=== PATIENT | female | born 1975 | race Hispanic/Latino ===

== ENCOUNTER 2018-09-28 17:27 | Emergency (ER) | payer OTHER, MEDICARE ==
[~2018-09-28 17:27] MED LIST: CLON0.5T12 PO; CLON1TAB12 PO; FLUO-125 PO; HYDR-4060 PO; METH2.5T6 PO; MULT-264 PO; MULTIVITAMIN PO; VITA1CAP85 PO
== END 2018-09-28 17:48 | disposition home or self-care (01) ==
LOC: EDH 17:27
DX: F43.20 Adjustment disorder, unspecified (principal); F41.9 Anxiety disorder, unspecified; F32.9 Major depressive disorder, single episode, unspecified; E11.9 Type 2 diabetes mellitus without complications; Z90.710 Acquired absence of both cervix and uterus; Z98.890 Other specified postprocedural states

== ENCOUNTER 2018-10-06 10:48 | Emergency (ER) | payer OTHER, MEDICARE ==
[2018-10-06] MEDS ORDERED: HYDROXYZINE HCL 50 MG/ML VIAL IM SCH (11:30)
[2018-10-06 11:48] LABS: HCG,QUAL RESULT NEGATIVE (NEGATIVE)
[2018-10-06 11:55] LABS: AMPHET/METH SCREEN,URINE NEGATIVE (NEGATIVE); BARBITURATE SCREEN, URINE NEGATIVE (NEGATIVE); BENZODIAZEPINES SCREEN,URINE NEGATIVE (NEGATIVE); CANNABINOID SCREEN,URINE NEGATIVE (NEGATIVE); COCAINE SCREEN,URINE NEGATIVE (NEGATIVE); OPIATE SCREEN,URINE NEGATIVE (NEGATIVE); PHENCYCLIDINE SCREEN,URINE NEGATIVE (NEGATIVE)
== END 2018-10-06 13:48 | disposition home or self-care (01) ==
LOC: EDH 10:48
DX: F41.1 Generalized anxiety disorder (principal); F32.9 Major depressive disorder, single episode, unspecified; E11.9 Type 2 diabetes mellitus without complications; Z90.710 Acquired absence of both cervix and uterus
CPT/HCPCS: 71045; 80305; 81025; 87804 ×2; 93005; 96372; 99284; J3410

== ENCOUNTER 2018-10-08 10:11 | Emergency (ER) | payer OTHER, MEDICARE ==
[2018-10-08] MEDS ORDERED: SODIUM CHLORIDE 0.9% 1000ML 1,000 ML IV ONE (11:27)
[2018-10-08 12:05] LABS: BASOPHILS % (AUTO) 0.2 % (0.0-5.0); EOSINOPHILS % (AUTO) 0.7 % (0.0-8.0); HEMATOCRIT 37.7 % (36-48); LYMPHOCYTES % (AUTO) 15.7 % (21.0-51.0); MEAN CORPUSCULAR HEMOGLOBIN 26.4 pg (27.0-33.0); MEAN CORPUSCULAR HGB CONC 32.4 g/dL (32.0-36.0); MEAN CORPUSCULAR VOLUME 81.5 fL (79-99); MONOCYTES % (AUTO) 5.8 % (3.0-13.0); NEUTROPHILS % (AUTO) 77.6 % (40.0-77.0); NUCLEATED RED BLOOD CELLS 0.1 % (0.0-0.19); PLATELET COUNT (AUTO) 281 K/uL (130-400); RED BLOOD CELL COUNT(AUTO) 4.62 MIL/uL (4.00-5.50); RED CELL DISTRIBUTION WIDTH 16.7 % (11.0-15.5)
[2018-10-08 12:13] LABS: CREATININE 1.1 mg/dL (0.5-1.5); POTASSIUM 3.9 mmol/L (3.5-5.1)
[2018-10-08 12:25] LABS: ALBUMIN 2.9 g/dL (3.5-5.0); BILIRUBIN,TOTAL 0.4 mg/dL (0.2-1.0); THYROID STIMULATING HORMONE 1.29 uIU/mL (0.36-3.74); TOTAL PROTEIN, SERUM 7.4 g/dL (6.0-8.3)
[2018-10-08 12:37] LABS: APPEARANCE,URINE Clear (CLEAR); BILIRUBIN,URINE Negative (NEGATIVE); COLOR,URINE Yellow (YELLOW); GLUCOSE, URINE (UA) Negative (NEGATIVE); KETONES,URINE Negative (NEGATIVE); LEUKOCYTE ESTERASE ,URINE Small (NEGATIVE); NITRATE,URINE Negative (NEGATIVE); OCCULT BLOOD,URINE Negative (NEGATIVE); PROTEIN,URINE Negative (NEGATIVE)
[2018-10-08 12:39] LABS: HCG,QUAL RESULT NEGATIVE (NEGATIVE)
[2018-10-08 12:44] LABS: AMPHET/METH SCREEN,URINE NEGATIVE (NEGATIVE); BARBITURATE SCREEN, URINE NEGATIVE (NEGATIVE); BENZODIAZEPINES SCREEN,URINE POSITIVE (NEGATIVE); CANNABINOID SCREEN,URINE NEGATIVE (NEGATIVE); COCAINE SCREEN,URINE NEGATIVE (NEGATIVE); OPIATE SCREEN,URINE NEGATIVE (NEGATIVE); PHENCYCLIDINE SCREEN,URINE NEGATIVE (NEGATIVE)
[2018-10-08 12:52] LABS: BACTERIA,URINE Rare /HPF (None Seen); RBC,URINE None Seen /HPF (0-1); SQUAMOUS EPITHELIAL CELL,UR Few /HPF (0-2); WBC,URINE 0-1 /HPF (0-1)
== END 2018-10-08 13:37 | disposition home or self-care (01) ==
LOC: EDH 10:11
DX: R00.2 Palpitations (principal); F41.9 Anxiety disorder, unspecified; F32.9 Major depressive disorder, single episode, unspecified; M19.90 Unspecified osteoarthritis, unspecified site; E11.9 Type 2 diabetes mellitus without complications; Z90.710 Acquired absence of both cervix and uterus; Z98.890 Other specified postprocedural states
CPT/HCPCS: 36415; 71046; 80053; 80305; 81001; 81025; 84443; 85025; 93005; 99284; J7030

== ENCOUNTER 2019-03-19 20:19 | Emergency (ER) | payer OTHER, MEDICARE ==
[2019-03-19] MEDS ORDERED: DEXAMETHASONE SOD PHOSPHATE 10MG/ML 1ML VIAL ONE (20:53)
[2019-03-19] MEDS ORDERED: DiphenhydrAMINE HCL 50 MG/ML VIAL ONE (20:53)
== END 2019-03-19 21:21 | disposition home or self-care (01) ==
LOC: EDH 20:19
DX: T78.40XA Allergy, unspecified, initial encounter (principal); E11.9 Type 2 diabetes mellitus without complications; F32.9 Major depressive disorder, single episode, unspecified; M19.90 Unspecified osteoarthritis, unspecified site; F41.9 Anxiety disorder, unspecified; Z90.710 Acquired absence of both cervix and uterus; Z90.89 Acquired absence of other organs; Z98.890 Other specified postprocedural states; Z72.0 Tobacco use; X58.XXXA Exposure to other specified factors, initial encounter
CPT/HCPCS: 96372 ×2; 99284; J1100; J1200

== ENCOUNTER 2019-03-25 20:54 | Emergency (ER) | payer OTHER, MEDICARE | END 2019-03-25 21:27 | disposition home or self-care (01) | LOC: EDH 20:54 | DX: F41.1 Generalized anxiety disorder (principal); F32.9 Major depressive disorder, single episode, unspecified; E11.9 Type 2 diabetes mellitus without complications ==

== ENCOUNTER 2019-07-17 22:29 | Emergency (ER) | payer OTHER, MEDICARE ==
[2019-07-17] MEDS ORDERED: DIAZEPAM 2 MG TAB ONE (23:21)
[2019-07-17] MEDS ORDERED: METHYLPREDNISOLONE SOD SUCC 125MG/2ML VIAL ONE (23:21)
[2019-07-18] MEDS ORDERED: LORAZEPAM 2 MG/ML 1 ML VIAL ONE (00:15)
== END 2019-07-18 00:48 | disposition home or self-care (01) ==
LOC: EDH 22:29
DX: S76.011A Strain of muscle, fascia and tendon of right hip, initial encounter (principal); F41.9 Anxiety disorder, unspecified; E11.9 Type 2 diabetes mellitus without complications; M19.90 Unspecified osteoarthritis, unspecified site; Z90.710 Acquired absence of both cervix and uterus; Z98.890 Other specified postprocedural states; Z72.0 Tobacco use; W18.39XA Other fall on same level, initial encounter; Y93.89 Activity, other specified; Y92.89 Other specified places as the place of occurrence of the external cause; Y99.8 Other external cause status
CPT/HCPCS: 73502; 96372 ×2; 99284; J2060; J2930

== ENCOUNTER 2022-03-30 11:44 | Emergency (ER) | payer MEDICARE ==
[~2022-03-30] VITALS: Ht 165.1 cm; Wt 108.0 kg
[~2022-03-30 11:44] MED LIST changes: -CLON0.5T12 PO; +CLON0.5T4 PO; -FLUO-125 PO; +FLUO10CA24 PO
[2022-03-30 11:46] VITALS: BP 135/77
[2022-03-30] MEDS ORDERED: GABA300C PO (12:10)
[2022-03-30] MEDS ORDERED: CYCLOBENZAPRINE HCL 10 MG TABLET PO ONE (12:30)
== END 2022-03-30 12:48 | disposition home or self-care (01) ==
LOC: EDH 11:44
DX: M25.551 Pain in right hip (principal); M06.9 Rheumatoid arthritis, unspecified; E11.9 Type 2 diabetes mellitus without complications; I10 Essential (primary) hypertension; E66.9 Obesity, unspecified; Z79.899 Other long term (current) drug therapy; Z68.39 Body mass index [BMI] 39.0-39.9, adult

== ENCOUNTER 2023-04-11 17:48 | Emergency (ER) | payer MEDICARE ==
[~2023-04-11] VITALS: Ht 165.1 cm; Wt 96.2 kg
[~2023-04-11 17:48] MED LIST changes: +GABA300C PO
[2023-04-11 19:44] VITALS: BP 139/88
[2023-04-11] MEDS ORDERED: FAMOTIDINE 20MG TAB PO ONE (22:00)
[2023-04-11] MEDS ORDERED: FAMOTIDINE 20MG VIAL IV ONE (22:00)
[2023-04-11] MEDS ORDERED: KETOROLAC 30MG VIAL (30MG/ML) IVP ONE (22:00)
[2023-04-11] MEDS ORDERED: METOCLOPRAMIDE 10 MG/2 ML VIAL IVP ONE (22:00)
[2023-04-11] MEDS ORDERED: LACTATED RINGERS 1000ML 1,000 ML IV ONE (22:00)
[2023-04-11] MEDS ORDERED: DIAZEPAM 5 MG/ML 2 ML SYG IVP ONE (22:00)
[2023-04-11 22:14] LABS: APPEARANCE,URINE CLEAR (CLEAR); BILIRUBIN,URINE NEGATIVE (NEGATIVE); COLOR,URINE LIGHT-YELLOW (YELLOW); GLUCOSE, URINE (UA) >=1000 mg/dL (NEGATIVE); KETONES,URINE 5 mg/dL (NEGATIVE); LEUKOCYTE ESTERASE ,URINE 250 Leu/uL (NEGATIVE); NITRATE,URINE NEGATIVE (NEGATIVE); OCCULT BLOOD,URINE NEGATIVE (NEGATIVE); PROTEIN,URINE 10 mg/dL (NEGATIVE); UROBILINOGEN,URINE 0.2 mg/dL (0.2-1.0)
[2023-04-11 22:16] LABS: BASOPHILS % (AUTO) 0.4 % (0.0-5.0); EOSINOPHILS % (AUTO) 1.2 % (0.0-8.0); HEMATOCRIT 35.8 % (36-48); LYMPHOCYTES % (AUTO) 33.4 % (21.0-51.0); MEAN CORPUSCULAR HEMOGLOBIN 26.2 pg (27.0-33.0); MEAN CORPUSCULAR HGB CONC 32.4 g/dL (32.0-36.0); MEAN CORPUSCULAR VOLUME 80.8 fL (79-99); MONOCYTES % (AUTO) 4.4 % (3.0-13.0); NEUTROPHILS % (AUTO) 60.3 % (40.0-77.0); PLATELET COUNT (AUTO) 253 K/uL (130-400); RED BLOOD CELL COUNT(AUTO) 4.43 MIL/uL (4.00-5.50); RED CELL DISTRIBUTION WIDTH 15.3 % (11.0-15.5); WHITE BLOOD COUNT (AUTO) 7.8 K/uL (4.8-10.8)
[2023-04-11 22:22] LABS: BACTERIA,URINE RARE /HPF (None Seen); MUCUS,URINE RARE LPF (None Seen); SQUAMOUS EPITHELIAL CELL,UR FEW /HPF (0-2); YEAST,URINE BUDDING RARE /HPF (None Seen)
[2023-04-11 22:43] LABS: CARBON DIOXIDE 31 mmol/L (21-32); CHLORIDE 100 mmol/L (101-111); CREATININE 0.9 mg/dL (0.5-1.5); GLOMERULAR FILTR. RATE CALC 79 mL/min (>90); GLUCOSE,RANDOM 332 mg/dL (70-105); POTASSIUM 5.4 mmol/L (3.5-5.1); SODIUM SERUM 135 mmol/L (136-145); UREA NITROGEN, BLOOD 9 mg/dL (7-18)
[2023-04-11 22:54] LABS: ALANINE AMINOTRANSFERASE 20 U/L (12-78); ALBUMIN 2.6 g/dL (3.5-5.0); ASPARTATE AMINOTRANSFERASE 33 U/L (10-37); HCG,QUANTITATIVE 2 mIU/mL (0-5); TOTAL PROTEIN, SERUM 7.1 g/dL (6.0-8.3)
[2023-04-11 22:57] LABS: LIPASE < 50 U/L (114-286)
[2023-04-12] MEDS ORDERED: CEPH500B PO (00:21)
[2023-04-12] MEDS ORDERED: MELO-106 PO (00:21)
[2023-04-12] MEDS ORDERED: PHEN-776 PO (00:21)
[2023-04-12] MEDS ORDERED: CYCL10TA16 PO (00:21)
[2023-04-12] MEDS ORDERED: CEPHALEXIN 500 MG CAPSULE PO ONE (00:30)
[2023-04-12] MEDS ORDERED: INSULIN HUMULIN R 100 UNIT/ML 3ML IV ONE (00:30)
== END 2023-04-12 01:00 | disposition home or self-care (01) ==
LOC: EDH 17:48
DX: M54.41 Lumbago with sciatica, right side (principal); N39.0 Urinary tract infection, site not specified; E87.6 Hypokalemia; E11.65 Type 2 diabetes mellitus with hyperglycemia; F41.9 Anxiety disorder, unspecified; M19.90 Unspecified osteoarthritis, unspecified site; F32.A Depression, unspecified; I10 Essential (primary) hypertension; M79.7 Fibromyalgia; Z79.899 Other long term (current) drug therapy
CPT/HCPCS: 99285; 96374; 96375 ×2; 71045; 96361; 84484; 80053; 84702; 83690; 85025; 87088; 82948; 81001; 36415; 74021; 93005; J7120; J3490; J3360; J1885; J2765; J1815

== ENCOUNTER 2024-01-31 11:12 | Emergency (ER) | payer MEDICARE ==
[~2024-01-31] VITALS: Ht 165.1 cm; Wt 81.6 kg
[~2024-01-31 11:12] MED LIST changes: +CEPH500B PO; +CYCL10TA16 PO; +MELO-106 PO; +PHEN-776 PO
[2024-01-31] MEDS: CEFTRIAXONE 2GM VIAL IVPB ONE (11:44)
[2024-01-31] MEDS: 0.9%NACL 1000ML 1,000 ML IV ONE (11:44)
[2024-01-31] MEDS ORDERED: ALBENDAZOLE 200 MG TABLET PO ONE (12:00)
[2024-01-31 12:09] LABS: EOSINOPHILS % (AUTO) 0.8 % (0.0-8.0); HEMATOCRIT 38.9 % (36-48); LYMPHOCYTES % (AUTO) 20.4 % (21.0-51.0); MEAN CORPUSCULAR HEMOGLOBIN 25.9 pg (27.0-33.0); MEAN CORPUSCULAR HGB CONC 34.2 g/dL (32.0-36.0); MEAN CORPUSCULAR VOLUME 75.7 fL (79-99); NEUTROPHILS % (AUTO) 71.9 % (40.0-77.0); PLATELET COUNT (AUTO) 301 K/uL (130-400); RED BLOOD CELL COUNT(AUTO) 5.14 MIL/uL (4.00-5.50); RED CELL DISTRIBUTION WIDTH 14.3 % (11.0-15.5); WHITE BLOOD COUNT (AUTO) 8.5 K/uL (4.8-10.8)
[2024-01-31 12:10] LABS: BASOPHILS # (AUTO) 0.03 K/uL (0.00-0.20); BASOPHILS % (AUTO) 0.4 % (0.0-5.0); EOSINOPHILS # (AUTO) 0.07 K/uL (0.00-0.70); IMMATURE GRANULOCYTE ABSOLUTE 0.04 K/uL (0-1); LYMPHOCYTES # (AUTO) 1.7 K/uL (1.0-4.8); MONOCYTES # (AUTO) 0.5 K/uL (0.1-1.0); NEUTROPHILS # (AUTO) 6.1 K/uL (1.8-7.7)
[2024-01-31 12:18] LABS: CREATININE 0.8 mg/dL (0.5-1.0); POTASSIUM 4.3 mmol/L (3.5-5.1)
[2024-01-31 12:32] LABS: MAGNESIUM 1.7 mg/dL (1.80-2.40); THYROID STIMULATING HORMONE 1.51 uIU/mL (0.36-3.74)
[2024-01-31] MEDS: INSULIN HUMULIN R 100 UNIT/ML 3ML SQ ONE (12:35)
[2024-01-31] MEDS ORDERED: ALBE200T7 PO (12:45)
[2024-01-31] MEDS ORDERED: DOXY-469 PO (12:45)
[2024-01-31 12:57] LABS: HIV 1&2 ANTIBODY Non-Reactive (Negative); HIV-1 p24 Antigen Non-Reactive (Negative)
[2024-01-31 13:54] VITALS: BP 127/90; PULSE 91; RESP 18; O2SAT 98
[2024-01-31 14:34] LABS: APPEARANCE,URINE CLEAR (CLEAR); BILIRUBIN,URINE SMALL mg/dL (NEGATIVE); COLOR,URINE YELLOW (YELLOW); GLUCOSE, URINE (UA) NEGATIVE (NEGATIVE); KETONES,URINE 15 mg/dL (NEGATIVE); LEUKOCYTE ESTERASE ,URINE LARGE Leu/uL (NEGATIVE); NITRATE,URINE NEGATIVE (NEGATIVE); OCCULT BLOOD,URINE LARGE (NEGATIVE); PH,URINE 6.5 (5.0-8.0); PROTEIN,URINE >=300 mg/dL (NEGATIVE)
[2024-01-31 14:35] LABS: ADD UA MICROSCOPIC YES
[2024-01-31 14:39] LABS: RBC,URINE TNTC /HPF (0-1); TRANSITIONAL EPI CELLS,URINE FEW /HPF (None Seen); WBC,URINE TNTC /HPF (0-1)
[2024-01-31 16:57] LABS: RAPID PLASMA REAGIN NONREACTIVE (NONREACTIVE)
== END 2024-01-31 13:56 | disposition home or self-care (01) ==
LOC: EDH 11:12
DX: L73.2 Hidradenitis suppurativa (principal); B83.9 Helminthiasis, unspecified; E11.65 Type 2 diabetes mellitus with hyperglycemia; E78.00 Pure hypercholesterolemia, unspecified; I10 Essential (primary) hypertension; M19.90 Unspecified osteoarthritis, unspecified site; Z79.899 Other long term (current) drug therapy
CPT/HCPCS: 99285; 96365; 86592; 84443; 83735; 80048; 85025; 87077; 87088; 87186; 82948; 86701; 87390; 81001; 36415; 76882; 96372; J1815; J7030; J0696

== ENCOUNTER 2024-08-19 08:27 | Emergency (ER) | payer MEDICARE ==
[~2024-08-19] VITALS: Ht 162.6 cm; Wt 70.3 kg
[~2024-08-19 08:27] MED LIST changes: +ALBE200T7 PO; +DOXY100C61 PO; +FLUO-341 PO; -FLUO10CA24 PO; +GUAI100L37 PO; +HYDR-4030 PO
[2024-08-19 08:36] VITALS: BP 108/79; PULSE 89; RESP 18; TEMP 97; O2SAT 98
[2024-08-19] MEDS ORDERED: ERYT60SO4 TP (08:41)
[2024-08-19] MEDS ORDERED: DOXY100C61 PO (08:41)
--- NOTE | 2024-08-19 08:43 | ERN ---
General Chief Complaint: Eye Problems Stated Complaint: EYE Time Seen by MD: 08:32 History of Present Illness Initial Comments 49-year-old female brought in by EMS for right eye irritation. Patient reports for the last 48 hours she has had some swelling to the right lower eyelid on the medial side with some discharge. She reports pain to the eye. No itching. No fevers or systemic symptoms. No vision changes. Medical history: Hypertension, diabetes, arthritis Stable vital signs per EMS. Allergies: Coded Allergies: No Known Drug Allergies (Unverified Allergy, Unknown, 12/09/15) Home Meds Active Scripts Guaifenesin (Tussin) 100 Mg/5 Ml Liquid, 100 MG PO BID for cough for 5 Days, #50 ML Prov:SINCERE WHITEHEAD MD 02/21/24 Hydroxyzine Pamoate (Hydroxyzine Pamoate) 25 Mg Capsule, 25 MG PO BID for 5 Days, #6 CAP Prov:SINCERE WHITEHEAD MD 02/21/24 Albendazole (Albendazole) 200 Mg Tablet, 400 MG PO ONCE, #2 TAB 1 Refill Repeat in two weeks from first dose Prov:PEREZ BURCH Sr., MD 01/31/24 Doxycycline Monohydrate (Doxycycline Monohydrate) 100 Mg Capsule, 100 MG PO BID for 14 Days, #28 CAP 0 Refills Prov:PEREZ BURCH Sr., MD 01/31/24 Meloxicam (Meloxicam) 7.5 Mg Tablet, 7.5 MG PO DAILY, #30 TAB Prov:PEREZ BURCH Sr., MD 04/12/23 Cyclobenzaprine HCl (Flexeril) 10 Mg Tab, 10 MG PO TID for muscle sstiffness, #14 TAB 0 Refills Prov:PEREZ BURCH Sr., MD 04/12/23 Phenazopyridine HCl (Pyridium) 200 Mg Tablet, 200 MG PO TID for painful urination, #6 TAB 0 Refills Prov:PEREZ BURCH Sr., MD 04/12/23 Cephalexin Monohydrate (Keflex) 500 Mg Cap, 500 MG PO QID for 7 Days, #28 CAP Prov:PEREZ BURCH Sr., MD 04/12/23 Gabapentin (Neurontin) 300 Mg Capsule, 300 MG PO BID, #60 CAP Prov:LANDEN GALVAN 03/30/22 Reported Medications Multivitamin (Multiple Vitamins) 1 Each Tablet, 1 EACH PO DAILY, TAB 01/15/16 Hydrocodone/Acetaminophen (Hydrocodon-Acetaminophen 5-325) 1 Each Tablet, 1 EACH PO BID, TAB 01/15/16 Clonazepam (Clonazepam) 1 Mg Tablet, 0.5 MG PO BID, TAB 01/15/16 Fluoxetine HCl (Fluoxetine HCl) 10 Mg Capsule, 2.5 MG PO DAILY, CAP 01/15/16 Vitamin B Complex (Vitamin B Complex) 1 Each Capsule, 1 EACH PO DAILY, CAP 01/15/16 [Multivitamin] No Conflict Check, 1 TAB PO DAILY 12/09/15 Clonazepam (Clonazepam) 0.5 Mg Tablet, 0.5 TAB PO BID, TAB 12/09/15 Methotrexate Sodium (Methotrexate) 2.5 Mg Tablet, 2.5 MG PO QWEEK, TAB 12/09/15 Past Medical History Past Medical History: Arthritis, Diabetes-Type II, Hypertension Medical History Other: RA Past Surgical History: Other Family History Family History: Negative Social History Social History: Negative ROS Dictation CONSTITUTIONAL: No chills, no fever, no weakness, no diaphoresis, no malaise. HEAD/FACE: No signs of trauma. EENT: Right eye pain in the discharge RESPIRATORY: No cough, no orthopnea, no SOB, no stridor, no wheezing. CARDIOVASCULAR: No chest pain, no edema, no palpitations, no syncope. GASTROINTESTINAL/ABDOMINAL: No abdominal pain, no constipation, no diarrhea, no nausea, no vomiting. GENITOURINARY: No abnormal discharge, no dysuria, no frequent urination, no hematuria. No complaints of pain in the genitals. MUSCULOSKELETAL: No back pain, no gout, no joint pain, no joint swelling, no muscle pain, no muscle stiffness, no neck pain. INTEGUMENTARY: No change in color, no change in hair/nails, no dryness, no lesion, no lumps, no rash. NEUROLOGICAL/PSYCH: No anxiety, not depressed, no emotional problem, no headache, no numbness, no pre-existing deficit, no history of seizures, no tremors, no weakness. HEMATOLOGIC/LYMPHATIC: Not anemic, no history of blood clots, no apparent bleeding, no bruising, glands not swollen. All Systems Negative, Except as Noted. Physical Exam Physical Exam Dictation VITAL SIGNS: Reviewed. GENERAL APPEARANCE: Alert, oriented x3, no acute distress, HEAD AND FACE: Non-traumatic. EYES: PERRL, conjunctiva clear, medial lower eyelid erythema with some disc harge. EOMI. EARS: Pinnas intact and no signs of trauma or erythema. Ear canals clear and no discharge. TMs no erythema. NOSE: No discharge, no bleeding. OROPHARYNX: Mouth normal, teeth no caries, tongue pink. Pharynx clear, no erythema. Tonsils no exudates, no abscesses noted. Mucous membrane moist. NECK: Supple, non-tender, no thyromegaly, no masses, no JVD, no bruits. BREAST: Deferred. CHEST: No tenderness, no crepitus, no paradoxical movement, no retractions. LUNGS: Clear, well-ventilated, symmetric, no rales, no wheezing, no rhonchi, no stridor, good breath sounds bilaterally. HEART: Regular rate, regular rhythm, no murmur, no gallops. VASCULAR: No peripheral edema. ABDOMEN: Soft, positive bowel sounds, nondistended, no guarding, nontender, no rebound, no masses no hepatomegaly, no splenomegaly, no Allan's sign, no hernias. RECTAL: Deferred. GENITAL: Deferred. NEUROLOGICAL: Normal speech, gross motor function intact, gross sensory function intact. MUSCULOSKELETAL: Neck nontender, full range of motion, back nontender, full range of motion. EXTREMITIES: Nontender, full range of motion. SKIN: Color pink, dry, no turgor, no rash, no lacerations, no abrasions, no contusions. LYMPHATICS: Deferred. MDM CC: Right eye discomfort Historian: Patient Comorbidities: Hypertension, diabetes, arthritis Does not wear contacts Differential diagnosis: Blepharitis, endophthalmitis, other Vital signs are stable Clinically patient has a blepharitis. No signs of conjunctivitis. No signs of systemic symptoms. Patient ordered erythromycin ointment. We will DC with oral doxycycline. Recommend eyelid hygiene. ED Course Orders Procedure Category Date Status Time Erythrocin 0.5% Ophth PHA 08/19/24 Verified Oint (Erythrocin 0 09:00 Vital Signs Date Time Temp Pulse Resp B/P (MAP) Pulse Ox O2 Delivery O2 Flow Rate FiO2 08/19/24 08:29 98.4 88 18 108/79 98 Room Air 0 DX & DISP Disposition: Discharge Departure Impression: Primary Impression: Blepharitis, right eye Condition: Stable Scripts Erythromycin Base/Ethanol (Erythromycin 2% Solution) 2 % Solution 1 APPL TP BID for 10 Days, #60 ML 0 Refills Prov: ARIADNE PETERSON DO 08/19/24 Doxycycline Monohydrate (Doxycycline Monohydrate) 100 Mg Capsule 1 CAP PO BID for 10 Days, #20 CAP 0 Refills Prov: ARIADNE PETERSON DO 08/19/24 Additional Instructions: You have blepharitis, or an eyelid infection. I have prescribed erythromycin ointment. Apply twice per day until the infection clears. I have also prescribed oral doxycycline, which is an antibiotic. Take as prescribed. Practice good eyelid hygiene. Regularly cleaned the eyelid margins. Use warm compresses such as a warm washcloth against your eye for least 10 minutes four or 5 times per day. You can take [id number] Tylenol or ibuprofen as needed for pain or discomfort. Follow up with her primary doctor in 48 hours for re-evaluation. Referrals: SELF,REFERRAL (PCP) ARIADNE PETERSON DO Aug 19, 2024 08:42
[2024-08-19] MEDS: ERYTHROMYCIN BASE 0.5% OPHTH OINT 1 GM TUBE OU SCH (08:54)
== END 2024-08-19 09:00 | disposition home or self-care (01) ==
LOC: EDH 08:27
DX: H01.002 Unspecified blepharitis right lower eyelid (principal); E11.9 Type 2 diabetes mellitus without complications; I10 Essential (primary) hypertension; M19.90 Unspecified osteoarthritis, unspecified site; Z79.1 Long term (current) use of non-steroidal anti-inflammatories (NSAID); Z79.899 Other long term (current) drug therapy; Z98.890 Other specified postprocedural states
CPT/HCPCS: 99283